=== PATIENT | female | born 1960 | race Caucasian/White ===

== ENCOUNTER → 2016-12-21 | Outpatient (CLI) | payer MEDICARE ==
[2015-07-30 14:41] VITALS: BP 106/63
[~2016-12-21] MED LIST: ALPR0.25 PO; ESTR1TAB15 PO; GABA-586 PO; HYDR1TAB10 PO; METH-37 PO; NAPR500T3 PO; OMEP20CA9 PO; PREG100C PO; TRAM50TA PO
--- NOTE | 2016-12-21 16:34 | RAD ---
Right neck ultrasound, 12/21/2016: History: Lump, pain Reportedly the area of concern was in the posterolateral neck on the right, although the patient was unable at this time to pinpoint a lump. A targeted ultrasound exam of this region revealed several small, smooth lymph nodes. The largest of these measures 10 x 7 x 3 mm. These nodes are not considered to be significantly enlarged. No significant soft tissue mass or abnormal fluid collection is seen. IMPRESSION: No significant abnormality is detected.
== END | disposition home or self-care (01) ==
LOC: US 10:36
PROVIDERS: ATTEND Nurse Practitioner Adult Health
DX: R59.9 Enlarged lymph nodes, unspecified (principal); M54.2 Cervicalgia; H66.91 Otitis media, unspecified, right ear; H92.01 Otalgia, right ear; Z72.0 Tobacco use; H61.21 Impacted cerumen, right ear
CPT/HCPCS: 76536

== ENCOUNTER → 2017-12-06 | Outpatient (CLI) | payer MEDICARE ==
[2015-07-30 14:41] VITALS: BP 106/63
[~2017-12-06] MED LIST changes: +NAPR-514 PO; -NAPR500T3 PO
--- NOTE | 2017-12-06 15:07 | RAD ---
Left hip, 2 views, 12/06/2017: HISTORY: Hip pain after a fall No fracture or dislocation is identified. The hip joint space is fairly well maintained. The periarticular soft tissues are unremarkable. IMPRESSION: No acute bony abnormality is detected. Electronically signed by: Francisco Judge MD (12/06/2017 3:04 PM) [facility]
== END | disposition home or self-care (01) ==
LOC: DXRAD 12:18
PROVIDERS: ATTEND Nurse Practitioner Family
DX: M25.552 Pain in left hip (principal); Z91.81 History of falling
CPT/HCPCS: 73502

== ENCOUNTER → 2018-11-14 | Outpatient (CLI) | payer MEDICARE ==
[2015-07-30 14:41] VITALS: BP 106/63
[~2018-11-14] MED LIST changes: +0.9 % SODIUM CHLORIDE 10 ML VIAL ONE; +DEXAMETHASONE SOD PHOS 10 MG/ML VIAL ONE; +IOHEXOL 300 MG/ML 50 ML VIAL. ONE; +LIDOCAINE 1% PF 30 ML VIAL. ONE; +OMEP20CA10 PO; -OMEP20CA9 PO
== END ==
LOC: SURG 07:51
PROVIDERS: ATTEND Anesthesiology
DX: M54.16 Radiculopathy, lumbar region (principal); K21.9 Gastro-esophageal reflux disease without esophagitis; Z88.1 Allergy status to other antibiotic agents; Z88.8 Allergy status to other drugs, medicaments and biological substances; Z72.0 Tobacco use; Z72.89 Other problems related to lifestyle; Z87.39 Personal history of other diseases of the musculoskeletal system and connective tissue; Z88.5 Allergy status to narcotic agent
CPT/HCPCS: 64483; 64484; J1100; J2001; Q9967; 64480

== ENCOUNTER → 2019-06-07 | Outpatient (CLI) | payer MEDICARE ==
[2015-07-30 14:41] VITALS: BP 106/63
[~2019-06-07] MED LIST changes: -0.9 % SODIUM CHLORIDE 10 ML VIAL ONE; -DEXAMETHASONE SOD PHOS 10 MG/ML VIAL ONE; +IOHEXOL 240 MG/ML 50ML VIAL. ONE; -IOHEXOL 300 MG/ML 50 ML VIAL. ONE; +IOHEXOL 300 MG/ML 75 ML VIAL. IV ONE; -LIDOCAINE 1% PF 30 ML VIAL. ONE; -OMEP20CA10 PO; +OMEP20CA16 PO
--- NOTE | 2019-06-07 14:58 | RAD ---
Examination: CT ABD PELV W/ORAL IV CONTRAST History: Mid abdominal pain with nausea for the past 2 weeks Comparison/Correlation: 03/11/2016 CT abdomen and pelvis with IV and oral contrast Findings: Axial images of the abdomen and pelvis were obtained following IV and oral contrast administration. Small Bochdalek hernia is present with minimal adjacent infiltrate or atelectasis. Diffuse fatty infiltration of the liver is present. Small focus of hyperenhancement of the left hepatic dome subcapsular aspect and right hepatic lobe posterior segment are unchanged compared to prior exam likely representing hemangiomas or other benign process. Spleen is normal. Pancreas is unremarkable. Cholecystectomy noted. Adrenal glands are normal. Kidneys unremarkable. No collecting system distention. Urinary bladder is unremarkable. Appendix is normal. Mild diverticulosis is present without findings of acute inflammation. No extraluminal gas. No bowel obstruction. No enlarged abdominal or pelvic lymph nodes. No ascites or pelvic free fluid. L4-5 vacuum disc with narrowing is present. Sacralization of L5. Hysterectomy noted. Impression: No inflammatory process, mass, or obstruction. Diverticulosis. PQRS Compliance Statement: One or more of the following individualized dose reduction techniques were utilized for this examination: 1. Automated exposure control 2. Adjustment of the mA and/or kV according to patient size 3. Use of iterative reconstruction technique Electronically signed by: See Weber MD (06/07/2019 2:54 PM) [facility]
== END | disposition home or self-care (01) ==
LOC: CT 09:53
PROVIDERS: ATTEND Family Medicine
DX: K57.90 Diverticulosis of intestine, part unspecified, without perforation or abscess without bleeding (principal); K46.9 Unspecified abdominal hernia without obstruction or gangrene; K76.0 Fatty (change of) liver, not elsewhere classified; M43.27 Fusion of spine, lumbosacral region; Z90.710 Acquired absence of both cervix and uterus; Z90.49 Acquired absence of other specified parts of digestive tract
CPT/HCPCS: 74177; Q9967

== ENCOUNTER → 2019-11-20 | Outpatient (CLI) | payer MEDICARE ==
[2015-07-30 14:41] VITALS: BP 106/63
[~2019-11-20] MED LIST changes: -IOHEXOL 240 MG/ML 50ML VIAL. ONE; -IOHEXOL 300 MG/ML 75 ML VIAL. IV ONE
--- NOTE | 2019-11-20 10:17 | NUR ---
NSG NOTE; OUT PT BLADDER SCAN PT HERE TO ROOM 109 AT 0950 VIA AMB ACCOMP BY MOTHER FOR PRE- AND POST-VOID BLADDER SCAN PRE-VOID BLADDER SCAN SHOWS PRESENCE OF URINE OF 257 ML PT VOIDED 250 MLS CLEAR YELLOW URINE WITH NO ODOR POST-VOID BLADDER SCAN SHOWS 27 ML URINE RETENTION COPY OF THIS NOTE WILL BE SENT TO DR RANDALL'S OFFICE PT DISCHARGED HOME AT 1015
== END | disposition home or self-care (01) ==
LOC: OPS 09:50
PROVIDERS: ATTEND Family Medicine
DX: N33 Bladder disorders in diseases classified elsewhere (principal); F17.210 Nicotine dependence, cigarettes, uncomplicated; Z88.8 Allergy status to other drugs, medicaments and biological substances; Z79.899 Other long term (current) drug therapy; Z82.49 Family history of ischemic heart disease and other diseases of the circulatory system
CPT/HCPCS: 51798

== ENCOUNTER → 2021-07-24 | Outpatient (CLI) | payer MEDICARE ==
[2015-07-30 14:41] VITALS: BP 106/63
--- NOTE | 2021-07-24 10:53 | RAD ---
INDICATION : Routine Screening. COMPARISON: Priors including July 2015 TECHNIQUE: Standard mammogram screening views of the bilateral breasts were obtained with 3D tomosynt hesis. CAD was utilized. FINDINGS: The breasts are scattered density. No definite suspicious mass. IMPRESSION: BI-RADS Category 1: Negative. Recommend repeat screening examination in one year. The patient was placed into the recall system with a suggested recall date for follow up imaging. Mammography is the most sensitive method for finding small breast cancers, but it does not detect the m all and is not a substitute for careful clinical examination. A negative mammogram does not negate a clinically suspicious finding and should not result in delay in biopsying a clinically suspicious abnormality. Electronically signed by: Steven Pillai MD (07/24/2021 10:51 AM) [id number]
== END ==
LOC: MAMMO 09:18
PROVIDERS: ATTEND Family Medicine
DX: Z12.31 Encounter for screening mammogram for malignant neoplasm of breast (principal)
CPT/HCPCS: 77063; 77067

== ENCOUNTER → 2021-08-19 | Outpatient (CLI) | payer MEDICARE ==
[2015-07-30 14:41] VITALS: BP 106/63
--- NOTE | 2021-08-19 11:18 | RAD ---
CT ABDOMEN+PELVIS WO History: Reason: LEFT FLANK PAIN, LLQ PAIN / Spl. Instructions: / History: Technique: Noncontrast examination of the abdomen and pelvis. Coronal and sagittal reconstructions we re performed. Exposure: One or more of the following individualized dose reduction techniques were utilized for thi s examination: 1. Automated exposure control 2. Adjustment of the mA and/or kV according to patient size 3. Use of iterative reconstruction technique. Comparison: June 07, 2019 Findings: Lower chest: No consolidation or pleural effusion. Abdomen and pelvis: Mild intrahepatic biliary ductal dilatation, likely within normal range for postc holecystectomy state. The spleen, adrenal glands, and pancreas are unremarkable. No renal, ureteral or urinary bladder calculus. No hydronephrosis. Decompressed urinary bladder. Colonic diverticulosis. Sigmoid colonic wall thickening. Inflamed sigmoid diverticula with adjacent i nflammatory changes. No abscess. No perforation. Normal appendix. No evidence of bowel obstruction. Small mesenteric and retroperitoneal lymph nodes. No ascites. Mild atherosclerotic plaque throughout the nonaneurysmal abdominal aorta and branch vesse ls. Prior hysterectomy. Bones: Lower lumbar spondylosis. Impression: 1. Acute sigmoid diverticulitis. No perforation or abscess. Electronically signed by: Aries López DO (08/19/2021 11:15 AM) [id number]
[2021-08-19 12:19] LABS: BASO % 1 % (0-3); EOS # 0.1 x10^3/uL (0.0-0.7); EOS % 1 % (0-3); HEMATOCRIT 41.9 % (36.0-47.0); HEMOGLOBIN 14.1 g/dL (12.0-15.5); LYMPH # 2.1 x10^3/uL (1.0-4.8); LYMPH % 34 % (24-48); MEAN CORPUSCULAR HEMOGLOBIN 30 pg (25-35); MEAN CORPUSCULAR HGB CONC 34 g/dL (31-37); MEAN CORPUSCULAR VOLUME 89 fL (79-100); MONO # 0.6 x10^3/uL (0.0-1.1); MONO % 9 % (0-9); NEUT # 3.5 x10^3uL (1.8-7.7); NEUT % 56 % (31-73); PLATELET COUNT 296 x10^3/uL (140-400); RED BLOOD COUNT 4.73 x10^6/uL (3.50-5.40); RED CELL DISTRIBUTION WIDTH 13.3 % (11.5-14.5); WHITE BLOOD COUNT 6.2 x10^3/uL (4.0-11.0)
[2021-08-19 12:56] LABS: ALBUMIN 3.7 g/dL (3.4-5.0); ALBUMIN/GLOBULIN RATIO 1.3 (1.0-1.7); CALCIUM 8.7 mg/dL (8.5-10.1); CREATININE 0.7 mg/dL (0.6-1.0); GFR 85.9; POTASSIUM 4.2 mmol/L (3.5-5.1); TOTAL BILIRUBIN 0.3 mg/dL (0.2-1.0); TOTAL PROTEIN 6.6 g/dL (6.4-8.2)
[2021-08-19 13:17] LABS: BACTERIA,URINE MOD /HPF (0-FEW); CLARITY,URINE HAZY; COLOR,URINE YELLOW; GLUCOSE,URINE NEG (NEG); NITRITE,URINE NEG (NEG); RBC,URINE OCC /HPF (0-2); SQUAMOUS EPITHELIAL CELL,UR MANY /LPF
== END ==
LOC: LAB 10:26
PROVIDERS: ATTEND Family Medicine
DX: K57.32 Diverticulitis of large intestine without perforation or abscess without bleeding (principal); I70.0 Atherosclerosis of aorta; K83.8 Other specified diseases of biliary tract; M47.816 Spondylosis without myelopathy or radiculopathy, lumbar region; Z90.710 Acquired absence of both cervix and uterus
CPT/HCPCS: 36415; 74176; 80053; 81001; 85025; 87086